=== PATIENT | female | born 1935 | race Caucasian/White ===

== ENCOUNTER 2020-06-28 10:14 | Inpatient (IN) | payer OTHER, BC ==
--- NOTE | 2020-06-28 10:27 | PDOC ---
History of Present Illness - History of Present Illness Initial Comments: 06/28/20 10:44 84 y.o. F PMHx HTN presenting due to L sided back pain. Patient states she had been bending over 2 days ago to lift up the toilet bowl seat when she felt a pain on the lower left side of her back. Patient states the pain progressed and is now feeling it down her left leg. Patient is able to ambulate unassisted and has had no headache, chest pain, sob, N/V/D or incontinence. PCP: Yael PMHx: HTN Meds: In Chart Allergies: Ibuprofen, penicillin, MRI contrast <Greg Cody - Last Filed: 06/28/20 15:49> - General History Source: Patient Exam Limitations: No Limitations <Aleah Barriga - Last Filed: 06/29/20 07:22> - General Chief Complaint: Back Pain Stated Complaint: BACK PAIN Past History - Medical History COPD: No HTN: Yes - Surgical History Appendectomy: Yes - Immunization History Immunization Up to Date: Yes - Psycho-Social/Smoking History Smoking History: Never smoked - Substance Abuse Hx (Audit-C & DAST Scrn) How often the patient has a drink containing alcohol: Never Score: In Men: 4 or > Positive; In Women: 3 or > Positive: 0 Screen Result (Pos requires Nsg. Audit-10AR): Negative In the last yr the pt used illegal drug/Rx for NonMed reason: No Score: Yes response is considered Positive: 0 Screen Result (Positive result requires Nsg. DAST-10): Negative <Greg Cody - Last Filed: 06/28/20 15:49> <Aleah Barriga - Last Filed: 06/29/20 07:22> - Medical History Allergies/Adverse Reactions: Allergies Allergy/AdvReac Type Severity Reaction Status Date / Time ibuprofen [From Advil] Allergy Verified 06/28/20 10:16 Penicillins Allergy Verified 06/28/20 10:16 MRI contrast Allergy Rash Uncoded 06/28/20 10:37 Home Medications: Ambulatory Orders Lisinopril [Zestril] 10 mg PO DAILY 11/01/14 Metoprolol Succinate [Toprol Xl] 50 mg PO BID 11/01/14 Review of Systems - Review of Systems Able to Perform ROS?: Yes Is the patient limited Ukrainian proficient: No Constitutional: No: Chills, Fever HEENTM: No: Blurred Vision, Double Vision Respiratory: No: Cough, Shortness of Breath Cardiac (ROS): No: Chest Pain, Edema ABD/GI: No: Constipated, Diarrhea, Nausea, Vomiting : No: Burning, Dysuria Musculoskeletal: No: Back Pain, Neck Pain Integumentary: No: Bruising, Erythema, Flushing Neurological: Yes: Weakness (L hip and back). No: Headache, Numbness, Tingling Hematologic/Lymphatic: No: Blood Clots, Easy Bleeding, Easy Bruising <Greg Cody - Last Filed: 06/28/20 15:49> *Physical Exam - Vital Signs Last Vital Signs Temp Pulse Resp BP Pulse Ox 92 H 18 124/82 100 06/28/20 10:16 06/28/20 10:16 06/28/20 10:16 06/28/20 10:16 - Physical Exam General Appearance: Yes: Nourished, Appropriately Dressed. No: Apparent Distress Respiratory/Chest: positive: Lungs Clear, Normal Breath Sounds. negative: Chest Tender, Crackles, Rales, Stridor, Wheezing Cardiovascular: positive: Regular Rhythm, Regular Rate. negative: Edema, JVD Gastrointestinal/Abdominal: positive: Normal Bowel Sounds, Flat, Soft. negative: Tender, Distended, Rebound, Tenderness Musculoskeletal: positive: Normal Inspection. negative: CVA Tenderness Extremity: positive: Normal Inspection. negative: Coldness, Cyanosis, Swelling, Calf Tenderness Integumentary: positive: Normal Color, Dry, Warm Neurologic: positive: Fully Oriented, Alert, Normal Mood/Affect, Normal Response, Motor Strength 5/5 <Greg Cody - Last Filed: 06/28/20 15:49> - Vital Signs Last Vital Signs Temp Pulse Resp BP Pulse Ox 92 H 18 124/82 100 06/28/20 10:16 06/28/20 10:16 06/28/20 10:16 06/28/20 10:16 <Aleah Barriga - Last Filed: 06/29/20 07:22> ED Treatment Course - LABORATORY CBC & Chemistry Diagram: 06/28/20 12:16 06/28/20 12:16 <Greg Cody - Last Filed: 06/28/20 15:49> - LABORATORY CBC & Chemistry Diagram: 06/28/20 12:16 06/28/20 12:16 - RADIOLOGY Radiology Studies Ordered: Category Date Time Status LUMBAR SPINE CT W/O CONTRAST [CT] Stat CT Scan 06/28/20 10:30 Taken - Medications Given in the ED: ED Medications Discontinued Medications Generic Name Dose Route Start Last Admin Trade Name Sharlene PRN Reason Stop Dose Admin Acetaminophen 975 mg 06/28/20 10:29 06/28/20 10:51 Tylenol - PO 06/28/20 10:30 975 mg ONCE ONE Administration Lidocaine 1 patch 06/28/20 10:37 06/28/20 10:51 Lidoderm Patch - TP 06/28/20 10:38 1 patch ONCE ONE Administration <Aleah Barriga - Last Filed: 06/29/20 07:22> Medical Decision Making - Medical Decision Making 06/28/20 10:50 84 y.o. F PMHx HTN presenting due to L sided back pain. DDx: Mechanical lumbar muscle strain, herniated disk, Impingement, cauda equina CT: Acute fracture of L4 with mild retropulsion of its posterior/superior margin resulting in moderate canal stenosis Labs: WBC 11.4, Trop 0.6 UA: 1+ protein, 1+ glucose, 2+ blood EKG: SR, RBB, QTc 458ms, rate 79 Dispo: Admission tele 06/28/20 15:40 <Greg Cody - Last Filed: 06/28/20 15:49> Discharge - Admission Yes <Greg Cody - Last Filed: 06/28/20 15:49> - Discharge Information Problems reviewed: Yes <Aleah Barriga - Last Filed: 06/29/20 07:22> - Discharge Information Clinical Impression/Diagnosis: Right bundle branch block, Unable to ambulate Fall Qualifiers: Encounter type: initial encounter Qualified Code(s): W19.XXXA - Unspecified fall, initial encounter Vertebral fracture Qualifiers: Encounter type: initial encounter Fracture of vertebra location: lumbar Lumbar vertebra fracture level: L4 Fracture type: closed Fracture morphology: unspecified fracture morphology Qualified Code(s): S32.049A - Unspecified fracture of fourth lumbar vertebra, initial encounter for closed fracture Condition: Guarded
[2020-06-28] MEDS ORDERED: ACETAMINOPHEN 325 MG TABLET (FP) PO ONE (10:29)
[2020-06-28] MEDS ORDERED: LIDOCAINE 5% TOPICAL PATCH TP ONE (10:37)
--- OUTSIDE RECORDS SUMMARY | 2020-06-28 10:37 | XMS ---
:1935 Author Organization [facility] Support Name Relationship Address Phone RE Unavailable Unavailable Unavailable JIMMY SON [address] [phone] [place] [address] Re-disclosure Warning The records that you are about to access may contain information from federally- assisted alcohol or drug abuse programs. If such information is present, then the following federally mandated warning applies: This information has been disclosed to you from records protected by federal confidentiality rules (42 CFR part 2). The federal rules prohibit you from making any further disclosure of this information unless further disclosure is expressly permitted by the written consent of the person to whom it pertains or as otherwise permitted by 42 CFR part 2. A general authorization for the release of medical or other information is NOT sufficient for this purpose. The Federal rules restrict any use of the information to criminally investigate or prosecute any alcohol or drug abuse patient.The records that you are about to access may contain highly sensitive health information, the redisclosure of which is protected by Article 27-F of the [facility] Public Health law. If you continue you may haveaccess to information: Regarding HIV / AIDS; Provided by facilities licensed or operated by the [facility] Office of Mental Health; or Provided by the [facility] Office for People With Developmental Disabilities. If such information is present, then the following [facility] mandated warning applies: This information has been disclosed to you from confidential records which are protected by state law. State law prohibits you from making any further disclosure of this information without the specific written consent of the person to whom it pertains, or as otherwise permitted by law. Any unauthorized further disclosure in violation of state law may result in a fine or group home sentence or both. A general authorization for the release of medical or other information is NOT sufficient authorization for further disclosure. Insurance Providers Payer name Policy type Policy ID Covered Covered constitution party's Policy P rodney / Coverage constitution party ID relationship to [employer] type [employer] GISELLE MULLEN [id number] SP [id number] (SECONDARY) 8 MEDICARE [id number] SP [id number]
[2020-06-28] MEDS ORDERED: ACETAMINOPHEN 325 MG TABLET (FP) ONE (10:40)
[2020-06-28] MEDS ORDERED: LIDOCAINE 5% TOPICAL PATCH ONE (10:41)
--- NOTE | 2020-06-28 10:57 | PDOC ---
Documentation entered by Prudencio Sewell SCRIBE, acting as scribe for Carly Dunn MD. Carly Dunn MD: This documentation has been prepared by the Donato chang Xhesika, SCRIBE, under my direction and personally reviewed by me in its entirety. I confirm that the documentation accurately reflects all work, treatment, procedures, and medical decision making performed by me. Attending Attestation - Resident Resident Name: Greg Cody - ED Attending Attestation I have performed the following: I have examined & evaluated the patient, The case was reviewed & discussed with the resident, I agree w/resident's findings & plan, Exceptions are as noted - HPI HPI: 06/28/20 10:40 [id number] with HTN and osteoporosis (previously on medication for this but not recently) who p/w left low back pain for the past 2 days, which worsened yesterday and began radiating down her left leg. The patient states she was trying to lift a part of the toilet 2 days ago when she felt a strain and had subsequent pain. Took Tylenol with partial relief. She denies ever having these symptoms before. Her daughter notes that the patient has been having difficulty walking since the pain worsened yesterday The patient denies chest pain, shortness of breath, headache and dizziness. Denies fever, chills, cough, nausea, vomiting, diarrhea and constipation. Denies dysuria, frequency, urgency and hematuria. Allergies: Ibuprofen, PCN, MRI contrast PCP: Adarsh Menezes - Physicial Exam PE: 06/28/20 10:44 GENERAL: elderly, nontoxic-appearing, no distress, answers questions appropriate ly, accompanied by daughter at bedside who assists in history HEENT: PERRLA, EOMI, moist mucous membranes NECK/BACK: no midline ttp, no spinal stepoff or deformity, no hematoma, full ROM, neck supple CARDIOVASCULAR: regular rate/rhythm, no MGR, strong peripheral pulses, capillary refill <2 seconds, extremities wwp, no edema LUNGS/RESPIRATORY: no respiratory distress, CTAB GI/ABDOMEN: symmetric elvh-cp-eaox, normoactive BS, soft, no ttp, no midline pulsatile masses : no CVA tenderness MSK/EXTREMITIES: no acute-appearing muscle atrophy, no acute deformity DERM/SKIN: warm and dry, no pallor, no jaundice, no rash, no pathologic- appearing bruising, no skin breakdown, no cuts, no lesions NEUROLOGICAL: GCS 15, CN II-XII grossly intact, 5/5 strength proximally and distally, no facial droop - Medical Decision Making 06/28/20 10:45 84YOF p/w left low back pain radiating down her left leg. No known h/o aortic aneurysm or dissection, no h/o osteoporosis or prolonged glucocorticoid or anticoagulant use, no h/o IVDU or immune compromise, no recent bacterial infections. No h/o cancer and no significant risk factors for cancer. The patient reports no recent trauma, weight loss, night sweats, swollen lymph nodes, fever, pain worsening with rest or at night, neuro focal deficit (no numbness/tingling/weakness focally), bowel or bladder dysfunction, or associated syncope, nausea, or diaphoresis. The pain is not severe or progressive, has been present for <6 weeks, and is not associated with thoracic or abdominal pain. Initial Vital Signs Pulse Resp BP Pulse Ox 92 H 18 124/82 100 06/28/20 10:16 06/28/20 10:16 06/28/20 10:16 06/28/20 10:16 Most likely muscle strain/sprain, sciatic nerve irritation, piriformis syndrome, etc. Less likely but possible DDD, DJD, osteophyte, compression fxr, other vertebral or spinous process fxr; malignancy, spinal epidural abscess, epidural hematoma, meningitis, multiple myeloma, or other more concerning etiology. Provider Orders Category Date Time Status LUMBAR SPINE CT W/O CONTRAST [CT] Stat CT Scan 06/28/20 10:30 Completed ELECTROCARDIOGRAM [CARD] Stat Cardiology 06/28/20 11:36 Completed EKG needed NOW Care 06/28/20 11:37 Completed Straight Catheter, Insert ONCE Care 06/28/20 11:36 Completed CARDIAC PROFILE ([facility]) Stat Lab 06/28/20 12:16 Completed CBC WITH DIFFERENTIAL Stat Lab 06/28/20 12:16 Completed COMP METABOLIC PANEL Stat Lab 06/28/20 12:16 Completed MAGNESIUM Stat Lab 06/28/20 12:16 Completed UA ([facility]) ONLY Stat Lab 06/28/20 13:00 Completed Acetaminophen [Tylenol -] Medication 06/28/20 10:40 Discontinued 975 mg .ROUTE .STK-MED ONE Acetaminophen [Tylenol -] Medication 06/28/20 10:29 Discontinued 975 mg PO ONCE ONE Clindamycin [Cleocin -] Medication 06/28/20 13:52 Discontinued 450 mg PO ONCE ONE Lidocaine 5% Patch [Lidoderm Patch -] Medication 06/28/20 10:41 Discontinued 1 patch .ROUTE .STK-MED ONE Lidocaine 5% Patch [Lidoderm Patch -] Medication 06/28/20 10:37 Discontinued 1 patch TP ONCE ONE Lidocaine Patch Removal [Lidoderm Patch Removal] Medication 06/28/20 22:00 Discontinued 1 each MC DAILY@2200 Morphine Injection - Medication 06/28/20 14:21 Discontinued 2 mg IVPUSH ONCE ONE Morphine Sulfate Medication 06/28/20 14:21 Discontinued 2 mg .ROUTE .STK-MED ONE Sodium Chloride [Normal Saline -] 500 ml Medication 06/28/20 14:21 Discontinued IV ASDIR URINE CULTURE Stat Micro 06/28/20 13:00 Completed IV Insert NOW Phy Order 06/28/20 11:36 Completed Saline Lock, Insert ONCE Phy Order 06/28/20 11:45 Ordered Microbiology Tests 06/28/20 13:00 Urine Culture - Final Urine - Urine - Catheterized Escherichia Coli Lab Results WBC 11.4 K/mm3 (4.0-10.0) H 06/28/20 12:16 RBC 4.02 M/mm3 (3.60-5.2) 06/28/20 12:16 Hgb 13.2 GM/dL (10.7-15.3) 06/28/20 12:16 Hct 38.8 % (32.4-45.2) 06/28/20 12:16 MCV 96.4 fl (80-96) H 06/28/20 12:16 MCH 32.9 pg (25.7-33.7) 06/28/20 12:16 MCHC 34.1 g/dl (32.0-36.0) 06/28/20 12:16 RDW 13.5 % (11.6-15.6) 06/28/20 12:16 Plt Count 140 K/MM3 (134-434) D 06/28/20 12:16 MPV 9.3 fl (7.5-11.1) 06/28/20 12:16 Absolute Neuts (auto) 8.7 K/mm3 (1.5-8.0) H 06/28/20 12:16 Neutrophils % 76.5 % (42.8-82.8) 06/28/20 12:16 Lymphocytes % 13.0 % (8-40) D 06/28/20 12:16 Monocytes % 9.3 % (3.8-10.2) 06/28/20 12:16 Eosinophils % 0.2 % (0-4.5) 06/28/20 12:16 Basophils % 1.0 % (0-2.0) 06/28/20 12:16 Nucleated RBC % 0 % (0-0) 06/28/20 12:16 Sodium 137 mmol/L (136-145) 06/28/20 12:16 Potassium 4.5 mmol/L (3.5-5.1) 06/28/20 12:16 Chloride 105 mmol/L (98-107) 06/28/20 12:16 Carbon Dioxide 27 mmol/L (21-32) 06/28/20 12:16 Anion Gap 5 MMOL/L (8-16) L 06/28/20 12:16 BUN 27.8 mg/dL (7-18) H 06/28/20 12:16 Creatinine 0.9 mg/dL (0.55-1.3) 06/28/20 12:16 Est GFR (CKD-EPI)AfAm 67.10 06/28/20 12:16 Est GFR (CKD-EPI)NonAf 57.90 06/28/20 12:16 Random Glucose 104 mg/dL (74-106) 06/28/20 12:16 Calcium 8.8 mg/dL (8.5-10.1) 06/28/20 12:16 Magnesium 2.4 mg/dL (1.8-2.4) 06/28/20 12:16 Total Bilirubin 0.4 mg/dL (0.2-1) 06/28/20 12:16 AST 22 U/L (15-37) 06/28/20 12:16 ALT 19 U/L (13-61) 06/28/20 12:16 Alkaline Phosphatase 68 U/L (45-117) 06/28/20 12:16 Creatine Kinase 64 U/L (26-192) 06/28/20 12:16 Troponin I 0.06 ng/ml (0.00-0.05) H 06/28/20 12:16 Total Protein 6.8 g/dl (6.4-8.2) 06/28/20 12:16 Albumin 3.2 g/dl (3.4-5.0) L 06/28/20 12:16 Urine Color Yellow 06/28/20 13:00 Urine Appearance Cloudy 06/28/20 13:00 Urine pH 5.0 (5.0-8.0) 06/28/20 13:00 Ur Specific Dodson 1.024 (1.010-1.035) 06/28/20 13:00 Urine Protein 1+ (NEGATIVE) H 06/28/20 13:00 Urine Glucose (UA) 1+ (NEGATIVE) H 06/28/20 13:00 Urine Ketones Negative (NEGATIVE) 06/28/20 13:00 Urine Blood 2+ (NEGATIVE) H 06/28/20 13:00 Urine Nitrite Positive (NEGATIVE) H 06/28/20 13:00 Urine Bilirubin Negative (NEGATIVE) 06/28/20 13:00 Urine Urobilinogen 0.2 mg/dL (0.2-1.0) 06/28/20 13:00 Ur Leukocyte Esterase 3+ (NEGATIVE) H 06/28/20 13:00 Urine WBC (Auto) 2330 /uL (0-25.8) 06/28/20 13:00 Urine RBC (Auto) 49 /uL (0-23.9) 06/28/20 13:00 Urine Casts (Auto) 1 /uL (0-3.1) 06/28/20 13:00 U Epithel Cells (Auto) 4 /uL (0-25.1) 06/28/20 13:00 Urine Bacteria (Auto) >9,000 /uL (0-1359) 06/28/20 13:00 CT/LUMBAR SPINE CT W/O CONTRAST Low back pain. CT scan of the lumbar spine without intravenous contrast. Coronal and sagittal reconstruction images were obtained. Compared to prior CT scan of the abdomen and pelvis reformatted images dated 11/01/2014. There is moderate compression and anterior wedging of L4 vertebral body superior endplates with lucent lines consistent with an acute fracture. There is mild retropulsion of its posterior/superior margin resulting in moderate canal stenosis as well as reaching and probably impinging both L4 nerve roots, left more the right. No gross paravertebral hematoma is identified. The rest of the lumbar spine is well aligned without evidence of a compression fracture or subluxation. L5-S1 mild degenerative disc disease with mild mainly left paracentral disc bulge and moderate bilateral facet hypertrophy, right more than left. L4-L5 moderate bilateral facet hypertrophy and minimal disc bulge without gross nerve root impi ngement. Notes made of multiple gallstones la yering posteriorly. There are a few right renal parapelvic cysts measuring up to 1.7 cm. Cannot rule out mild right renal hydronephrosis. A few left renal parapelvic cysts are also present measuring up to 1.4 cm. Dense calcified plaques in the abdominal aorta down through its bifurcation. Multiple diverticula in included portion of the distal sigmoid colon as well as in the proximal ascending colon without evidence of acute diverticulitis IMPRESSION: There is moderate compression/anterior wedging of L4 superior endplate consistent with an acute fracture with mild retropulsion of its posterior/ superior margin resulting in moderate canal stenosis and likely impinging both L4 nerve roots, left more than right. Diverticulosis coli in included portion of the colon without evidence of acute diverticulitis. Multiple gallstones. Bilateral renal parapelvic cysts and questionable mild renal hydronephrosis. Cystic density along posterior margin of the right kidney measuring 3.8 cm likely representing an exophytic right renal cyst Spoke with Dr. Jarrett, consult placed, requests MRI but document management technician states machine is down today, called for repair already. Dr. Jarrett requests brace application and will admit with plan for MRI when it is back online. Admission per resident note. Heart Score/ECG Review #1 06/28/20 11:57 Sinus rhythm, rate79, one PAC, RBBB with expected secondary ST-T changes (RBBB was not present on most recent [facility] EKG from 2014), no ischemic ST-T changes. Discharge - Discharge Information Problems reviewed: Yes Clinical Impression/Diagnosis: Right bundle branch block, Unable to ambulate Fall Qualifiers: Encounter type: initial encounter Qualified Code(s): W19.XXXA - Unspecified fall, initial encounter Vertebral fracture Qualifiers: Encounter type: initial encounter Fracture of vertebra location: lumbar Lumbar vertebra fracture level: unspecified lumbar vertebra Fracture type: closed Fracture morphology: wedge compression Qualified Code(s): S32.000A - Wedge compression fracture of unspecified lumbar vertebra, initial encounter for closed fracture Condition: Guarded - Admission Yes - Follow up/Referral - Patient Discharge Instructions - Post Discharge Activity
[2020-06-28 12:36] LABS: EOS % 0.2 % (0-4.5); HEMATOCRIT 38.8 % (32.4-45.2); HEMOGLOBIN 13.2 GM/dL (10.7-15.3); MCH 32.9 pg (25.7-33.7); MCHC 34.1 g/dl (32.0-36.0); MEAN CELL VOLUME 96.4 fl (80-96); MEAN PLT VOLUME 9.3 fl (7.5-11.1); MONO % 9.3 % (3.8-10.2); NEUT % 76.5 % (42.8-82.8); PLATELET COUNT 140 K/MM3 (134-434); RBC 4.02 M/mm3 (3.60-5.2); RDW 13.5 % (11.6-15.6); WHITE BLOOD COUNT 11.4 K/mm3 (4.0-10.0)
[2020-06-28 13:05] LABS: ALBUMIN 3.2 g/dl (3.4-5.0); BILIRUBIN,TOTAL 0.4 mg/dL (0.2-1); BLOOD UREA NITROGEN 27.8 mg/dL (7-18); CALCIUM 8.8 mg/dL (8.5-10.1); CREATININE 0.9 mg/dL (0.55-1.3); MAGNESIUM 2.4 mg/dL (1.8-2.4); POTASSIUM 4.5 mmol/L (3.5-5.1); TOT PROT 6.8 g/dl (6.4-8.2)
[2020-06-28 13:37] LABS: EPI CELLS 4 /uL (0-25.1); HYALINE CASTS 1 /uL (0-3.1); URINE APPEARANCE CLOUDY; URINE BACTERIA >9,000 /uL (0-1359); URINE BILIRUBIN NEGATIVE (NEGATIVE); URINE COLOR YELLOW; URINE GLUCOSE (UA) 1+ (NEGATIVE); URINE KETONE NEGATIVE (NEGATIVE); URINE LEUK ESTERASE 3+ (NEGATIVE); URINE NITRITE POSITIVE (NEGATIVE); URINE PROTEIN 1+ (NEGATIVE); URINE RBC 49 /uL (0-23.9); URINE UROBILINOGEN 0.2 mg/dL (0.2-1.0); URINE WBC 2330 /uL (0-25.8)
[2020-06-28] MEDS ORDERED: CLINDAMYCIN HCL 150 MG CAPSULE (FP) PO ONE (13:52)
[2020-06-28] MEDS ORDERED: SODIUM CHLORIDE 500 ML IV STA (14:21)
[2020-06-28] MEDS ORDERED: MORPHINE SULFATE 2 MG/ML VIAL ONE (14:21)
[2020-06-28] MEDS ORDERED: morphine CARPU-JECT 4 MG/1 ML DISP.SYRIN IVPUSH ONE (14:21)
--- NOTE | 2020-06-28 15:02 | EKG ---
Test Reason : Blood Pressure : / mmHG Vent. Rate : 079 BPM Atrial Rate : 079 BPM P-R Int : 132 ms QRS Dur : 118 ms QT Int : 400 ms P-R-T Axes : 071 -28 017 degrees QTc Int : 458 ms SINUS RHYTHM WITH PREMATURE SUPRAVENTRICULAR COMPLEXES RIGHT BUNDLE BRANCH BLOCK ABNORMAL ECG WHEN COMPARED WITH ECG OF 01-NOV-2014 19:35, PREMATURE SUPRAVENTRICULAR COMPLEXES ARE NOW PRESENT RIGHT BUNDLE BRANCH BLOCK IS NOW PRESENT Confirmed by PEYTON BENTLEY MD ([id number]) on 06/28/2020 3:01:59 PM Referred By: Confirmed By:PEYTON BENTLEY MD
[2020-06-28] MEDS ORDERED: MORPHINE SULFATE 2 MG/ML VIAL IVPUSH PRN (16:01)
--- NOTE | 2020-06-28 16:07 | HP ---
CHIEF COMPLAINT: lumbar back pain PCP: Dr. Seymour HISTORY OF PRESENT ILLNESS: History obtained with assistance of daughter Wilbur Rankin ([phone]) at bedside. Patient is an 84 year old female with history of hypertension, osteoarthritis, oral cancer (s/p jaw surgery) presents with complaint of lumbar back pain. Patient endorses symptoms began three days ago after she attempted to lift up her toilet seat. She endorses a sharp pain at her left lower back that has progressed with radiation to her leg. Daughter at bedside endorses the pain has worsened such that patient was unable to get out of bed this morning, prompting her presentation to Emergency Department. At baseline, patient ambulates with a can, though sometimes she does not use it. Denies any trauma or falls, subjective fevers, shortness of breath, chest pain, palpitations, abdominal pain, nausea, vomiting, dysuria, hematuria, or increased urinary frequency ER course was notable for: (1) CT lumbar spine (2) (3) Recent Travel: denies PAST MEDICAL HISTORY: hypertension, osteoarthritis, oral cancer PAST SURGICAL HISTORY: jaw surgery, appendectomy, left breast biopsy Social History: Lives alone in apartment, however nephew lives in floor above. Ambulates with cane. Immigrated from [place]; retired electrical boat worker. Smoking: denies Alcohol: denies Drugs: denies Allergies ibuprofen [From Advil] Allergy (Verified 06/28/20 10:16) Penicillins Allergy (Verified 06/28/20 10:16) MRI contrast Allergy (Uncoded 06/28/20 10:37) Rash HOME MEDICATIONS: Home Medications Medication Instructions Recorded Lisinopril [Zestril] 10 mg PO DAILY 11/01/14 Metoprolol Succinate [Toprol Xl] 50 mg PO BID 11/01/14 REVIEW OF SYSTEMS CONSTITUTIONAL: Absent: fever, chills, diaphoresis, generalized weakness, malaise, loss of appetite, weight change HEENT: Absent: rhinorrhea, nasal congestion, throat pain, throat swelling, difficulty swallowing, mouth swelling, ear pain, eye pain, visual changes CARDIOVASCULAR: Absent: chest pain, syncope, palpitations, irregular heart rate, lightheadedness, peripheral edema RESPIRATORY: Absent: cough, shortness of breath, dyspnea with exertion, orthopnea, wheezing, stridor, hemoptysis GASTROINTESTINAL: Absent: abdominal pain, abdominal distension, nausea, vomiting, diarrhea, constipation, melena, hematochezia GENITOURINARY: Absent: dysuria, frequency, urgency, hesitancy, hematuria, flank pain, genital pain MUSCULOSKELETAL: Admits: back pain Absent: myalgia, arthralgia, joint swelling, neck pain SKIN: Absent: rash, itching, pallor HEMATOLOGIC/IMMUNOLOGIC: Absent: easy bleeding, easy bruising, lymphadenopathy, frequent infections ENDOCRINE: Absent: unexplained weight gain, unexplained weight loss, heat intolerance, cold intolerance NEUROLOGIC: Absent: headache, focal weakness or paresthesias, dizziness, unsteady gait, seizure, mental status changes, bladder or bowel incontinence PSYCHIATRIC: Absent: anxiety, depression, suicidal or homicidal ideation, hallucinations. PHYSICAL EXAMINATION Vital Signs - 24 hr 06/28/20 06/28/20 10:16 13:35 Temperature 97.8 F Pulse Rate 92 H Pulse Rate [ 81 Left] Respiratory 18 Rate Blood Pressure 124/82 Blood Pressure 143/83 [Left] O2 Sat by Pulse 100 95 Oximetry (%) GENERAL: Awake, alert, and fully oriented, in no acute distress. HEAD: Normal with no signs of trauma. EYES: Pupils equal, round and reactive to light, extraocular movements intact, sclera anicteric, conjunctiva clear. No lid lag. EARS, NOSE, THROAT: Ears normal, nares patent, oropharynx clear without exudates. Moist mucous membranes. NECK: Normal range of motion, supple without lymphadenopathy, JVD, or masses. LUNGS: Breath sounds equal, clear to auscultation bilaterally. No wheezes, and no crackles. No accessory muscle use. HEART: Regular rate and rhythm, normal S1 and S2 without murmur, rub or gallop. ABDOMEN: Soft, nontender, not distended, normoactive bowel sounds, no guarding, no rebound, no masses. No hepatomegaly or splenomegaly. MUSCULOSKELETAL: Normal range of motion at all joints. No bony deformities or tenderness. No CVA tenderness. UPPER EXTREMITIES: 2+ pulses, warm, well-perfused. No cyanosis. No clubbing. No peripheral edema. LOWER EXTREMITIES: 2+ pulses, warm, well-perfused. No calf tenderness. No peripheral edema. NEUROLOGICAL: Cranial nerves II-XII intact. Normal speech. Normal gait. PSYCHIATRIC: Cooperative. Good eye contact. Appropriate mood and affect. SKIN: Warm, dry, normal turgor, no rashes or lesions noted, normal capillary refill Laboratory Results - last 24 hr 06/28/20 06/28/20 06/28/20 12:16 12:16 13:00 WBC 11.4 H RBC 4.02 Hgb 13.2 Hct 38.8 MCV 96.4 H MCH 32.9 MCHC 34.1 RDW 13.5 Plt Count 140 D MPV 9.3 Absolute Neuts (auto) 8.7 H Neutrophils % 76.5 Lymphocytes % 13.0 D Monocytes % 9.3 Eosinophils % 0.2 Basophils % 1.0 Nucleated RBC % 0 Sodium 137 Potassium 4.5 Chloride 105 Carbon Dioxide 27 Anion Gap 5 L BUN 27.8 H Creatinine 0.9 Est GFR (CKD-EPI)AfAm 67.10 Est GFR (CKD-EPI)NonAf 57.90 Random Glucose 104 Calcium 8.8 Magnesium 2.4 Total Bilirubin 0.4 AST 22 ALT 19 Alkaline Phosphatase 68 Creatine Kinase 64 Troponin I 0.06 H Total Protein 6.8 Albumin 3.2 L Urine Color Yellow Urine Appearance Cloudy Urine pH 5.0 Ur Specific [place] 1.024 Urine Protein 1+ H Urine Glucose (UA) 1+ H Urine Ketones Negative Urine Blood 2+ H Urine Nitrite Positive H Urine Bilirubin Negative Urine Urobilinogen 0.2 Ur Leukocyte Esterase 3+ H Urine WBC (Auto) 2330 Urine RBC (Auto) 49 Urine Casts (Auto) 1 U Epithel Cells (Auto) 4 Urine Bacteria (Auto) >9,000 ASSESSMENT/PLAN: Patient is an 84 year old female with history of hypertension, osteoarthritis, oral cancer (s/p jaw surgery) presents with complaint of lumbar back pain. Lumbar L4 fracture -CT lumbar spine reveals moderate compression/ anterior edging of L4. Moderate canal stenosis, L4 nerve impingement. -Neurosurgery consult (Dr. Jarrett) -Will obtain MRI lumbar spine without contrast (contrast allergy noted) -Will require physical therapy evaluation, after neursurgical evaluation -Pain management with Acetaminophen, Morphine for breakthrough pain -Fall precautions ?New RBBB -Prior ECG in 2014 did not reveal RBBB -In setting of troponin 0.06. Will trend -Cardiac telemetry monitoring -Cardiology evaluation (Dr. Paul) requested Urinary tract infection -UA significant for UTI -Follow urine culture -Clindamycin IV (penicillin allergy) -Follow CBC -CT scan noted questionable mild right sided hydronephrosis. Will obtain renal ultrasound to further evaluate. History of hypertension -Continue home Lisinopril, Metoprolol FEN -No IV fluids indicated -Follow BMP -Sodium controlled diet Prophylaxis -Holding chemical anticoagulation in anticipation of neursurgical evaluation. SCDs bilateral lower extremities. Disposition -Admit to Telemetry floor. Family Medical History Family History: Unremarkable Visit type - Medication Review Med list reviewed for High Risk Meds patients 65 and older: Yes - Emergency Visit Emergency Visit: Yes ED Registration Date: 06/28/20 Care time: The patient presented to the Emergency Department on the above date and was hospitalized for further evaluation of their emergent condition. - New Patient This patient is new to me today: Yes Date on this admission: 06/28/20 - Critical Care Critical Care patient: No ATTENDING PHYSICIAN STATEMENT I saw and evaluated the patient. I reviewed the resident's note and discussed the case with the resident. I agree with the resident's findings and plan as documented. SUBJECTIVE: OBJECTIVE: ASSESSMENT AND PLAN:
[2020-06-28] MEDS ORDERED: CIPROFLOXACIN 400 MG/D5W 400 MG/200 ML IVPB IVPB ONE (16:19)
--- OUTSIDE RECORDS SUMMARY | 2020-06-28 16:31 | XMS ---
:1935 Author Organization [facility] Support Name Relationship Address Phone RE Unavailable Unavailable Unavailable RE Unavailable Unavailable Unavailable JIMMY SON [address] [address] Re-disclosure Warning The records that you are [...] is protected by Article 27-F of the [facility] Public Health law. If you continue you may haveaccess to information: Regarding HIV / AIDS; Provided by facilities licensed or operated by the [facility] Office of Mental Health; or Provided by the [facility] Office for People With Developmental Disabilities. If such information is present, then the following [facility] mandated warning applies: This information has been [...] law may result in a fine or fpc sentence or both. A general authorization for the release of medical or other information is NOT sufficient authorization for further disclosure. Insurance Providers Payer name Policy type Policy ID Covered Covered alliance party's Policy P rodney / Coverage alliance party ID relationship to [employer] type [place] [employer] [id number] SP [id number] (SECONDARY) 8 MEDICARE [id number] SP [id number]
[2020-06-28 18:32] VITALS: BMI 27.3
[2020-06-28] MEDS: CLINDAMYCIN 600MG PREMIX IVPB 600 MG/50 ML BAG IVPB SCH (20:45)
[2020-06-28] MEDS: ACETAMINOPHEN 325 MG TABLET (FP) PO PRN (21:06)
[2020-06-28] MEDS: LIDOCAINE PATCH REMOVAL MC SCH (21:58)
--- NOTE | 2020-06-28 22:47 | PN ---
Teaching Attending Note Name of Resident: Barry Silverman ATTENDING PHYSICIAN STATEMENT I saw and evaluated the patient. I reviewed the resident's note and discussed the case with the resident. I agree with the resident's findings and plan as documented. SUBJECTIVE: Patient seen and examined at bedside, admitted for L4 fx w/ canal stenosis, also found to have UTI. VSS. OBJECTIVE: GA elderly, frail, AAox2 HEENT NC/AT, mild JVD, neck supple, dry MM Chest crackles at bases CVS s1, s2+, RRR Abd Soft, NT, BS+, ND Ext no LE edema, no calf tenderness, L spine tenderness to palpation mild suprapubic discomfort to palpation, no CVA tenderness Vital Signs (72 hours) 06/28/20 06/28/20 06/28/20 10:16 13:35 17:40 Temperature 97.8 F Pulse Rate 92 H Pulse Rate [ 81 88 Left] Respiratory 18 20 Rate Blood Pressure 124/82 Blood Pressure 143/83 134/70 [Left] O2 Sat by Pulse 100 95 97 Oximetry (%) 06/28/20 06/28/20 18:22 21:00 Temperature 97.9 F 97.7 F Pulse Rate 94 H 98 H Pulse Rate [ Left] Respiratory 20 20 Rate Blood Pressure 140/86 145/76 Blood Pressure [Left] O2 Sat by Pulse 94 L 97 Oximetry (%) Laboratory Results - last 24 hr 06/28/20 06/28/20 06/28/20 12:16 12:16 13:00 WBC 11.4 H RBC 4.02 Hgb 13.2 Hct 38.8 MCV 96.4 H MCH 32.9 MCHC 34.1 RDW 13.5 Plt Count 140 D MPV 9.3 Absolute Neuts (auto) 8.7 H Neutrophils % 76.5 Lymphocytes % 13.0 D Monocytes % 9.3 Eosinophils % 0.2 Basophils % 1.0 Nucleated RBC % 0 Sodium 137 Potassium 4.5 Chloride 105 Carbon Dioxide 27 Anion Gap 5 L BUN 27.8 H Creatinine 0.9 Est GFR (CKD-EPI)AfAm 67.10 Est GFR (CKD-EPI)NonAf 57.90 Random Glucose 104 Calcium 8.8 Magnesium 2.4 Total Bilirubin 0.4 AST 22 ALT 19 Alkaline Phosphatase 68 Creatine Kinase 64 Troponin I 0.06 H Total Protein 6.8 Albumin 3.2 L Urine Color Yellow Urine Appearance Cloudy Urine pH 5.0 Ur Specific [place] 1.024 Urine Protein 1+ H Urine Glucose (UA) 1+ H Urine Ketones Negative Urine Blood 2+ H Urine Nitrite Positive H Urine Bilirubin Negative Urine Urobilinogen 0.2 Ur Leukocyte Esterase 3+ H Urine WBC (Auto) 2330 Urine RBC (Auto) 49 Urine Casts (Auto) 1 U Epithel Cells (Auto) 4 Urine Bacteria (Auto) >9,000 06/28/20 06/28/20 16:18 21:25 WBC RBC Hgb Hct MCV MCH MCHC RDW Plt Count MPV Absolute Neuts (auto) Neutrophils % Lymphocytes % Monocytes % Eosinophils % Basophils % Nucleated RBC % Sodium Potassium Chloride Carbon Dioxide Anion Gap BUN Creatinine Est GFR (CKD-EPI)AfAm Est GFR (CKD-EPI)NonAf Random Glucose Calcium Magnesium Total Bilirubin AST ALT Alkaline Phosphatase Creatine Kinase 57 54 Troponin I 0.08 H 0.05 Total Protein Albumin Urine Color Urine Appearance Urine pH Ur Specific [place] Urine Protein Urine Glucose (UA) Urine Ketones Urine Blood Urine Nitrite Urine Bilirubin Urine Urobilinogen Ur Leukocyte Esterase Urine WBC (Auto) Urine RBC (Auto) Urine Casts (Auto) U Epithel Cells (Auto) Urine Bacteria (Auto) Home Medications Medication Instructions Recorded Lisinopril [Zestril] 10 mg PO DAILY 11/01/14 Metoprolol Succinate [Toprol Xl] 50 mg PO BID 11/01/14 Current Medications Generic Name Dose Route Start Last Admin Trade Name Freq PRN Reason Stop Dose Admin Acetaminophen 650 mg 06/28/20 16:01 06/28/20 21:06 Tylenol - PO 650 mg Q6H PRN Administration PAIN LEVEL 1-5 Clindamycin Phosphate 600 mg in 50 mls @ 100 mls/hr 06/28/20 20:00 06/28/20 20:45 Cleocin 600 Mg Premix Ivpb - IVPB 100 mls/hr Q8H-IV TOMAS Administration Protocol Lisinopril 10 mg 06/29/20 10:00 Prinivil PO DAILY TOMAS Metoprolol Succinate 50 mg 06/28/20 22:00 06/28/20 21:07 Toprol Xl - PO 50 mg BID TOMAS Administration Miscellaneous 1 each 06/28/20 22:00 06/28/20 21:58 Lidoderm Patch Removal MC 1 each DAILY@2200 TOMAS Administration Morphine Sulfate 1 mg 06/28/20 16:01 Morphine Sulfate IVPUSH Q4H PRN PAIN LEVEL 6-10 ASSESSMENT AND PLAN: 84 F L spine fx w/ moderate canal stenosis ALJEANDRA UTI HTN Mild dementia Plan: IV Tylenol for pain control, Morphine for severe pain Renal/Bladder US for ALEJANDRA/hematuria Clindamycin for UTI Aggressive bowel regimen NSG following Cardiology evaluation (Dr. Mccall) for troponemia/RBBB on EKG Tele monitoring DVT ppx: heparin SC
[2020-06-29] MEDS: CLINDAMYCIN 600MG PREMIX IVPB 600 MG/50 ML BAG IVPB SCH ×3 (03:18→17:14)
[2020-06-29] MEDS: ACETAMINOPHEN 325 MG TABLET (FP) PO PRN ×3 (03:37→21:10)
[2020-06-29 07:12] LABS: HEMATOCRIT 36.2 % (32.4-45.2); HEMOGLOBIN 12.4 GM/dL (10.7-15.3); MCH 32.9 pg (25.7-33.7); MCHC 34.2 g/dl (32.0-36.0); MEAN CELL VOLUME 96.3 fl (80-96); MEAN PLT VOLUME 10.1 fl (7.5-11.1); PLATELET COUNT 133 K/MM3 (134-434); RBC 3.76 M/mm3 (3.60-5.2); RDW 13.7 % (11.6-15.6); WHITE BLOOD COUNT 9.5 K/mm3 (4.0-10.0)
[2020-06-29 07:45] LABS: ALBUMIN 2.9 g/dl (3.4-5.0); BILIRUBIN,TOTAL 0.7 mg/dL (0.2-1); BLOOD UREA NITROGEN 26.4 mg/dL (7-18); CALCIUM 8.1 mg/dL (8.5-10.1); CREATININE 0.8 mg/dL (0.55-1.3); MAGNESIUM 2.1 mg/dL (1.8-2.4); PHOSPHOROUS 3.2 mg/dL (2.5-4.9); POTASSIUM 4.4 mmol/L (3.5-5.1); TOT PROT 6.2 g/dl (6.4-8.2)
--- NOTE | 2020-06-29 08:43 | PN ---
Teaching Attending Note Name of Resident: Kamran Ruggiero ATTENDING PHYSICIAN STATEMENT I saw and evaluated the patient. I reviewed the resident's note and discussed the case with the resident. I agree with the resident's findings and plan as documented. SUBJECTIVE: Patient still with back pain OBJECTIVE: Vital Signs Period Temp Pulse Resp BP Sys/Penny Pulse Ox Last 24 Hr 97.7 F-98.4 F 90-98 18-20 115-145/55-89 90-97 Physical exam as per resident note ASSESSMENT AND PLAN: 84 y/o F with Hx of HTN, OA, Oral CA who presents with lumbar back pain Lumbar Pain in setting of L4 compression fracture NeuroSx evaluation for intervention: Surgical vs. conservative Continue Pain control HTN Cont Lisinopril, Metoprolol UTI Cont Clindamycin PPx SCD,
[2020-06-29] MEDS: LISINOPRIL 10 MG TABLET PO SCH (09:38)
--- NOTE | 2020-06-29 10:06 | EKG ---
Test Reason : Blood Pressure : / mmHG Vent. Rate : 092 BPM Atrial Rate : 092 BPM P-R Int : 130 ms QRS Dur : 116 ms QT Int : 390 ms P-R-T Axes : 000 -28 -06 degrees QTc Int : 482 ms SINUS RHYTHM WITH PREMATURE SUPRAVENTRICULAR COMPLEXES RIGHT BUNDLE BRANCH BLOCK ABNORMAL ECG WHEN COMPARED WITH ECG OF 28-JUN-2020 11:57, NO SIGNIFICANT CHANGE WAS FOUND Confirmed by MD Carlos, Cleve ([id number]) on 06/29/2020 10:06:31 AM Referred By: Confirmed By:Cleve Gonzalez MD
--- NOTE | 2020-06-29 12:30 | CONSULT ---
Consult - text type - Consultation Consultation Note: NEUROSURGERY CONSULTATION Patient is an 84 year old female with a history of HTN, osteoarthritis, oral cancer who developed low back pain after an incident 4 days ago when she was lifting a toilet seat and noted sudden sharp pain in her Lumbar spine. This has progressed to include Left leg radicular pain and the patient presented to the [facility] ED with inability to get out of bed whereas she normally ambulates with a cane. CT and MRI demonstrate an acute L4 burst fracture with mild retropulsion and bilateral foraminal encroachment. TLICS Score is 2 (2 Morphology; 0 Neurology; 0 Posterior element compromise) suggesting initial management in a brace would be appropriate. - TLSO brace when out of bed and for comfort - Physical Therapy - GI/DVT Prophylaxis - Will re-evaluate after ambulating with brace. If patient cannot bear weight or has intractable radicular symptoms or progressive angulation, will discuss the potential role for further intervention.
--- NOTE | 2020-06-29 12:58 | CON.CARD ---
Consult Consult Specialty:: Cardiology Referred by:: medicine Reason for Consultation:: abnormal EKG - History of Present Illness Chief Complaint: back pain History of Present Illness: 84F h/o HTN, OA, oral cancer s/p jaw surgery p/w back pain. Started 3 days ago, sharp pain after lifting the toilet seat and her leg hurts now as well. Complains of leg pain currently. no chest pain, palps, dizziness,dyspnea. noted to have abnormal EKG with new RBBB and mildly elevated trop. - Past Medical History Cardio/Vascular: Yes: HTN Pulmonary: Yes: Cancer - Alcohol/Substance Use Hx Alcohol Use: No History of Substance Use: reports: None - Smoking History Smoking history: Never smoked Home Medications - Allergies Allergies/Adverse Reactions: Allergies Allergy/AdvReac Type Severity Reaction Status Date / Time ibuprofen [From Advil] Allergy Verified 06/28/20 10:16 Penicillins Allergy Verified 06/28/20 10:16 MRI contrast Allergy Rash Uncoded 06/28/20 10:37 - Home Medications Home Medications: Ambulatory Orders Lisinopril [Zestril] 10 mg PO DAILY 11/01/14 Metoprolol Succinate [Toprol Xl] 50 mg PO BID 11/01/14 Family Medical History Family History: Unremarkable Review of Systems - Review of Systems Constitutional: reports: No Symptoms Eyes: reports: No Symptoms HENT: reports: No Symptoms Neck: reports: No Symptoms Cardiovascular: reports: No Symptoms Respiratory: reports: No Symptoms Gastrointestinal: reports: No Symptoms Genitourinary: reports: No Symptoms Musculoskeletal: reports: No Symptoms Integumentary: reports: No Symptoms Neurological: reports: No Symptoms Endocrine: reports: No Symptoms Hematology/Lymphatic: reports: No Symptoms Psychiatric: reports: No Symptoms Vital Signs: Vital Signs Temperature 98.4 F 06/29/20 09:55 Pulse Rate 90 06/29/20 09:55 Respiratory Rate 20 06/29/20 09:55 Blood Pressure 143/89 06/29/20 09:55 O2 Sat by Pulse Oximetry (%) 95 06/29/20 09:55 Constitutional: Yes: Well Nourished, No Distress, Calm Eyes: Yes: Conjunctiva Clear, EOM Intact HENT: Yes: Atraumatic, Normocephalic Neck: Yes: Supple, Trachea Midline Respiratory: Yes: Regular, CTA Bilaterally Gastrointestinal: Yes: Normal Bowel Sounds, Soft Cardiovascular: Yes: Regular Rate and Rhythm JVD: No Heart Sounds: Yes: S1, S2 Musculoskeletal: Yes: Back Pain Extremities: No: Cold Edema: No Integumentary: No: Jaundice Neurological: Yes: Alert, Oriented Psychiatric: No: Agitated - Other Data Labs, Other Data: CBC, BMP 06/29/20 05:45 06/29/20 05:45 Troponin, BNP 06/28/20 06/28/20 06/28/20 12:16 16:18 21:25 Troponin I 0.06 H 0.08 H 0.05 Troponin, BNP 06/28/20 06/28/20 06/28/20 12:16 16:18 21:25 Troponin I 0.06 H 0.08 H 0.05 Assessment/Plan EKG: sinus, RBBB, no ischemic changes (RBBB new since prior EKG from 2014) tele: sinus 84F h/o HTN, OA, oral cancer s/p jaw surgery p/w back pain with new RBBB on EKG abnormal EKG, RBBB - check echo elevated trop - indeterminate range, flat trend - no ischemic change on EKG, unlikely ACS - echo as above back pain, lumbar L4 fracture - neurosurgery consulted UTI - manage per primary HTN - cont home meds
--- NOTE | 2020-06-29 14:48 | ECHO ---
Version: 1 Name: FRANCHESCA MARQUEZ Exam: Adult Echocardiogram Study Date: 06/29/2020, 10:52 AM Age: 84 Years MMode/2D Measurements & Calculations IVSd: 0.89 cm LVIDs: 2.6 cm LVIDd: 3.1 cm LVPWd: 0.91 cm LAV (MOD-bp): 56.0 ml LVOT diam: 1.95 cm Ao root diam: 3.2 cm LA dimension: 2.7 cm Doppler Measurements & Calculations MV E max dae: 57.5 cm/sec Med E/e': 17.0 MV A max dae: 87.5 cm/sec Med Peak E' Dae: 3.4 cm/sec MV E/A: 0.66 Lat E/e': 6.5 Lat Peak E' Dae: 8.8 cm/sec MR max P.4 mmHg Ao max P.8 mmHg Ao V2 max: 130.3 cm/sec AI P1/2t: 368.6 msec TR max dae: 341.2 cm/sec TR max P.8 mmHg Left Ventricle The left ventricular size, thickness and function are normal. EF 55%. Abnormal diastolic complaince. Right Ventricle The right ventricle is normal in size and function. Atria Moderate LAE. Right atrial size is normal. Mitral Valve The mitral valve is normal in structure and function. Tricuspid Valve The tricuspid valve is normal in structure and function. Mild TR, PASP 52 mmHg consistent with moder ate pulmonary HTN. Aortic Valve Fibrocalcific changes of the aortic valve without aortic stenosis. Mild AI. Pulmonic Valve The pulmonic valve is normal in structure and function. Great Vessels The aortic root is normal size. Pericardium/Pleura There is no pericardial effusion. Summary Statements The left ventricular size, thickness and function are normal EF 55% Abnormal diastolic complaince The right ventricle is normal in size and function. Moderate LAE Right atrial size is normal. The mitral valve is normal in structure and function. The tricuspid valve is normal in structure and function. Mild TR, PASP 52 mmHg consistent with moderate pulmonary HTN Fibrocalcific changes of the aortic valve without aortic stenosis. Mild AI MD Cleve Gonzalez 06/29/2020, 2:47 PM Ordering Physician: Liss Abel Performed By: Barbara Churchill
--- NOTE | 2020-06-29 16:08 | PN ---
Physical Exam: SUBJECTIVE: Patient seen and examined at bedside, reports a sudden onset of back pain after lifting her toilet seat. Started Sunday and worsened last night. Denies numbness of inner thigh, buttock, Urinary/bowel incontinence. OBJECTIVE: Vital Signs Period Temp Pulse Resp BP Sys/Penny Pulse Ox Last 24 Hr 97.7 F-98.4 F 88-98 18-20 115-145/55-89 90-97 GENERAL: The patient is awake, alert, and fully oriented, in no acute distress. HEAD: Normal with no signs of trauma. EYES: PERRL, extraocular movements intact, sclera anicteric, conjunctiva clear. No ptosis. ENT: Ears normal, nares patent, oropharynx clear without exudates, moist mucous membranes. NECK: Trachea midline, full range of motion, supple. LUNGS: Breath sounds equal, clear to auscultation bilaterally, no wheezes, no crackles, no accessory muscle use. HEART: Regular rate and rhythm, S1, S2 without murmur, rub or gallop. ABDOMEN: Soft, nontender, nondistended, normoactive bowel sounds, no guarding, no rebound, no hepatosplenomegaly, no masses. EXTREMITIES: 2+ pulses, warm, well-perfused, no edema. NEUROLOGICAL: Cranial nerves II through XII grossly intact. Normal speech, gait not observed. PSYCH: Normal mood, normal affect. SKIN: Warm, dry, normal turgor, no rashes or lesions noted Laboratory Results - last 24 hr 06/28/20 06/28/20 06/28/20 16:00 16:18 21:25 WBC RBC Hgb Hct MCV MCH MCHC RDW Plt Count MPV Sodium Potassium Chloride Carbon Dioxide Anion Gap BUN Creatinine Est GFR (CKD-EPI)AfAm Est GFR (CKD-EPI)NonAf Random Glucose Calcium Phosphorus Magnesium Total Bilirubin AST ALT Alkaline Phosphatase Creatine Kinase 57 54 Troponin I 0.08 H 0.05 Total Protein Albumin COVID-19 (JAMIE) Not detected 06/29/20 06/29/20 05:45 05:45 WBC 9.5 RBC 3.76 Hgb 12.4 Hct 36.2 MCV 96.3 H MCH 32.9 MCHC 34.2 RDW 13.7 Plt Count 133 L MPV 10.1 Sodium 137 Potassium 4.4 Chloride 105 Carbon Dioxide 25 Anion Gap 7 L BUN 26.4 H Creatinine 0.8 Est GFR (CKD-EPI)AfAm 77.37 Est GFR (CKD-EPI)NonAf 66.76 Random Glucose 87 Calcium 8.1 L Phosphorus 3.2 Magnesium 2.1 Total Bilirubin 0.7 AST 31 ALT 21 Alkaline Phosphatase 63 Creatine Kinase Troponin I Total Protein 6.2 L Albumin 2.9 L COVID-19 (JAMIE) Active Medications Generic Name Dose Route Start Last Admin Trade Name Freq PRN Reason Stop Dose Admin Acetaminophen 650 mg 06/28/20 16:01 06/29/20 14:46 Tylenol - PO 650 mg Q6H PRN Administration PAIN LEVEL 1-5 Clindamycin Phosphate 600 mg in 50 mls @ 100 mls/hr 06/28/20 20:00 06/29/20 09:37 Cleocin 600 Mg Premix Ivpb - IVPB 100 mls/hr Q8H-IV TOMAS Administration Protocol Lisinopril 10 mg 06/29/20 10:00 06/29/20 09:38 Prinivil PO 10 mg DAILY TOMAS Administration Metoprolol Tartrate 50 mg 06/29/20 22:00 Lopressor - PO BID TOMAS Miscellaneous 1 each 06/28/20 22:00 06/28/20 21:58 Lidoderm Patch Removal MC 1 each DAILY@2200 TOMAS Administration Morphine Sulfate 1 mg 06/28/20 16:01 Morphine Sulfate IVPUSH Q4H PRN PAIN LEVEL 6-10 Imaging: Lumbar spine MRI: Acute compression fracture of L4 vertebral body with retropulsion of the posterior aspect of the of the vertebrae severely compromising the sac displacing it posteriorly with mass effect on the right and left L5 nerve roots in the recesses at best delineated on axial T1 image #11 and 12. No evidence otherwise of midline or foraminal herniation. The visualized foramina are symmetric and unremarkable. Cholelithiasis with no evidence of intrahepatic biliary ducts, common hepatic or common bile duct dilatation. Lumbar spine CT: There is moderate compression/anterior wedging of L4 superior endplate consistent with an acute fracture with mild retropulsion of its posterior/superior margin resulting in moderate canal stenosis and likely impinging both L4 nerve roots, left more than right. Diverticulosis coli in included portion of the colon without evidence of acute diverticulitis. Multiple gallstones. Bilateral renal parapelvic cysts and questionable mild renal hydro nephrosis. Cystic density along posterior margin of the right kidney measuring 3.8 cm likely representing an exophytic right renal cyst U/S renal/ bladder: No hydronephrosis is seen. Incidental bilateral peripelvic cysts are noted which appear unchanged in comparison to a 2015 CT exam. The urinary bladder volume at the time of scanning is approximately 115 mL. The patient was unable to void at the time of examination. Cholelithiasis. ASSESSMENT/PLAN: Patient is an 84 year old female with history of hypertension, osteoarthritis, oral cancer (s/p jaw surgery) presents with lumbar back pain, admitted for a Lumbar L4 fracture #Acute compression fracture of L4 vertebral body -CT/MRI of Lumbar spine : acute L4 burst fracture with mild retropulsion and bilateral foraminal encroachment -Neurosurgery, Dr. Jarrett, is following, recs appreciated TLSO brace when out of bed and for comfort Will re-evaluate after ambulating with brace -PT eval pending -Pain management: Acetaminophen 650mg PO Q6H, Morphine 1 mg Q4H PRN -Fall precautions #New RBBB #Elevated Trop - RBBB new since prior EKG from 2015 - troponin 0.06, 0.08, 0.05. Flat trend, EKG no ST/T wave changes - Cardiology, Dr. Colten Leija, following, recs appreciated no ischemic change on EKG, unlikely ACS - Echo: EF 55%, Mild TR, Mod pulmonary HTN #Ua suggestive of UTI -UA : 2 + blood, Nitrite +, LE 3+, WBC 2330, Bacteria >9000, Epithel cells 4. Pending Ucx -Continue with Clindamycin IV 600mg Q8H (penicillin allergy) -U/S kidney/bladder : as noted above #Hx of HTN -Continue home Lisinopril 10mg QD, Lopressor 50mg BID FEN - No standing fluids - will continue to monitor electrolytes - Sodium controlled diet DVT ppx - Lovenox 40mg SQ Disposition - Will continue to monitor in Tele, pending PT eval Visit type - Emergency Visit Emergency Visit: Yes ED Registration Date: 06/28/20 Care time: The patient presented to the Emergency Department on the above date and was hospitalized for further evaluation of their emergent condition. - New Patient This patient is new to me today: No - Critical Care Critical Care patient: No - Discharge Referral Referred to [facility] Med P.C.: No - Medication Review Med list reviewed for High Risk Meds patients 65 and older: Yes ATTENDING PHYSICIAN STATEMENT I saw and evaluated the patient. I reviewed the resident's note and discussed the case with the resident. I agree with the resident's findings and plan as documented. SUBJECTIVE: OBJECTIVE: ASSESSMENT AND PLAN:
[2020-06-29] MEDS ORDERED: MORPHINE SULFATE 2 MG/ML VIAL IVPUSH ONE (16:35)
[2020-06-29] MEDS: ENOXAPARIN NA (PORCINE) 40 MG/0.4 ML DISP.SYRIN SQ SCH (17:14)
[2020-06-29] MEDS ORDERED: oxyCODONE HCL 5 MG TABLET PO PRN (17:22)
[2020-06-29] MEDS ORDERED: MORPHINE SULFATE 2 MG/ML VIAL IVPUSH PRN (17:24)
[2020-06-29] MEDS: METOPROLOL TARTRATE 50 MG TABLET (FP) PO SCH (21:10)
[2020-06-29] MEDS: LIDOCAINE PATCH REMOVAL MC SCH (21:52)
[2020-06-30] MEDS: CLINDAMYCIN 600MG PREMIX IVPB 600 MG/50 ML BAG IVPB SCH ×3 (01:29→18:11)
[2020-06-30] MEDS: ACETAMINOPHEN 325 MG TABLET (FP) PO PRN ×2 (06:38→23:46)
[2020-06-30 07:37] LABS: BASO % 0.6 % (0-2.0); EOS % 2.8 % (0-4.5); HEMATOCRIT 36.6 % (32.4-45.2); HEMOGLOBIN 12.5 GM/dL (10.7-15.3); LYMPH % 24.9 % (8-40); MCHC 34.2 g/dl (32.0-36.0); MEAN CELL VOLUME 96.3 fl (80-96); MEAN PLT VOLUME 9.2 fl (7.5-11.1); MONO % 14.2 % (3.8-10.2); NEUT % 57.5 % (42.8-82.8); PLATELET COUNT 147 K/MM3 (134-434); RDW 13.7 % (11.6-15.6); WHITE BLOOD COUNT 8.4 K/mm3 (4.0-10.0)
[2020-06-30] MEDS: oxyCODONE HCL 5 MG TABLET PO PRN ×3 (08:20→23:45)
[2020-06-30 08:21] LABS: ALBUMIN 2.7 g/dl (3.4-5.0); BLOOD UREA NITROGEN 28.5 mg/dL (7-18); CALCIUM 8.4 mg/dL (8.5-10.1); MAGNESIUM 2.3 mg/dL (1.8-2.4); POTASSIUM 4.5 mmol/L (3.5-5.1)
[2020-06-30 08:24] LABS: BILIRUBIN,TOTAL 0.5 mg/dL (0.2-1); CREATININE 0.9 mg/dL (0.55-1.3); PHOSPHOROUS 3.4 mg/dL (2.5-4.9); TOT PROT 6.2 g/dl (6.4-8.2)
[2020-06-30] MEDS: METOPROLOL TARTRATE 50 MG TABLET (FP) PO SCH ×2 (09:54→23:45)
[2020-06-30] MEDS: LISINOPRIL 10 MG TABLET PO SCH (09:54)
[2020-06-30] MEDS: ENOXAPARIN NA (PORCINE) 40 MG/0.4 ML DISP.SYRIN SQ SCH (09:54)
[2020-06-30] MEDS ORDERED: FLU VACCINE (FLULAVAL) PF 60 MCG/0.5 ML SYRINGE 2020-2021 IM ONE (11:00)
[2020-06-30] MEDS ORDERED: DOCUSATE SODIUM 100 MG CAPSULE (FP) PO PRN (11:55)
[2020-06-30] MEDS: MORPHINE SULFATE 2 MG/ML VIAL IVPUSH PRN (12:08)
--- NOTE | 2020-06-30 12:19 | PN ---
Progress Note (short form) - Note Progress Note: cc: back pain s: complains of back pain. no chest pain, palps dizziness, dyspnea never smoker Current Medications Generic Name Dose Route Start Last Admin Trade Name Freq PRN Reason Stop Dose Admin Acetaminophen 650 mg 06/28/20 16:01 06/30/20 06:38 Tylenol - PO 650 mg Q6H PRN Administration PAIN LEVEL 1-5 Docusate Sodium 100 mg 06/30/20 11:55 Colace - PO BID PRN CONSTIPATION Enoxaparin Sodium 40 mg 06/29/20 16:45 06/30/20 09:54 Lovenox - SQ 40 mg DAILY TOMAS Administration Clindamycin Phosphate 600 mg in 50 mls @ 100 mls/hr 06/28/20 20:00 06/30/20 09:53 Cleocin 600 Mg Premix Ivpb - IVPB 100 mls/hr Q8H-IV TOMAS Administration Protocol Lisinopril 10 mg 06/29/20 10:00 06/30/20 09:54 Prinivil PO 10 mg DAILY TOMAS Administration Metoprolol Tartrate 50 mg 06/29/20 22:00 06/30/20 09:54 Lopressor - PO 50 mg BID TOMAS Administration Miscellaneous 1 each 06/28/20 22:00 06/29/20 21:52 Lidoderm Patch Removal MC 1 each DAILY@2200 TOMAS Administration Morphine Sulfate 1 mg 06/30/20 08:44 06/30/20 12:08 Morphine Sulfate IVPUSH 1 mg Q4H PRN Administration PAIN LEVEL 6-10 Oxycodone HCl 5 mg 06/30/20 08:15 06/30/20 08:20 Roxicodone - PO 5 mg Q6H PRN Administration PAIN LEVEL 1-5 Polyethylene Glycol 17 gm 06/30/20 12:00 Miralax (For Daily Use) - PO DAILY TOMAS Vital Signs Period Temp Pulse Resp BP Sys/Penny Pulse Ox Last 24 Hr 97.7 F-98.5 F 76-95 18-20 112-127/55-80 90-97 Constitutional: Yes: Well Nourished, No Distress, Calm Eyes: Yes: Conjunctiva Clear, EOM Intact HENT: Yes: Atraumatic, Normocephalic Neck: Yes: Supple, Trachea Midline Respiratory: Yes: Regular, CTA Bilaterally Gastrointestinal: Yes: Normal Bowel Sounds, Soft Cardiovascular: Yes: Regular Rate and Rhythm JVD: No Heart Sounds: Yes: S1, S2 Musculoskeletal: Yes: Back Pain Extremities: No: Cold Edema: No Integumentary: No: Jaundice Neurological: Yes: Alert, Oriented Psychiatric: No: Agitated Assessment/Plan EKG: sinus, RBBB, no ischemic changes (RBBB new since prior EKG from 2014) tele: sinus echo 06/2020 nl LV function, abnormal diastolic compliance, PASP 52 mmHg mod pulm HTN, mild AR, nl RV 84F h/o HTN, OA, oral cancer s/p jaw surgery p/w back pain with new RBBB on EKG abnormal EKG, RBBB, pulm HTN - echo shows nl LV function with mod pulm HTN - consider pulm eval, RBBB and pulm HTN may be 2/2 underlying lung disease, patient denies history elevated trop - indeterminate range, flat trend - no ischemic change on EKG, unlikely ACS - nl LV function on echo back pain, lumbar L4 fracture - neurosurgery consulted UTI - manage per primary HTN - cont home meds
--- NOTE | 2020-06-30 12:50 | PN ---
Teaching Attending Note Name of Resident: Becca Marie ATTENDING PHYSICIAN STATEMENT I saw and evaluated the patient. I reviewed the resident's note and discussed the case with the resident. I agree with the resident's findings and plan as documented. SUBJECTIVE: Patient in pain OBJECTIVE: Vital Signs Period Temp Pulse Resp BP Sys/Penny Pulse Ox Last 24 Hr 97.7 F-98.5 F 76-95 18-20 112-127/55-80 90-97 Physical exam as per resident note ASSESSMENT AND PLAN: 84 y/o F with Hx of HTN, OA, Oral CA who presents with lumbar back pain Lumbar Pain in setting of L4 compression fracture Patient did not tolerate much ambulation with TLSO brace today, will defer to Neuro Sx if patient would benefit from surgical intervention. Continue Pain control with oxycodone for sever pain with morphine for break through pain HTN Cont Lisinopril, Metoprolol UTI Cont Clindamycin EKG with RBBB Echo reviewed ACS ruled out PPx SCD, Lovenox
[2020-06-30] MEDS: POLYETHYLENE GLYCOL 3350 119 GM BTL PO SCH (12:56)
--- NOTE | 2020-06-30 14:36 | PN ---
Physical Exam: SUBJECTIVE: Patient seen and examined at bedside. Reports severe pain overnight. No new complaints, denies any fevers chills. reports LBM was 3 days ago. OBJECTIVE: Vital Signs Period Temp Pulse Resp BP Sys/Penny Pulse Ox Last 24 Hr 97.7 F-98.5 F 76-95 17-20 112-127/58-80 95-97 GENERAL: The patient is awake, alert, and fully oriented, in no acute distress. HEAD: Normal with no signs of trauma. EYES: PERRL, extraocular movements intact, sclera anicteric, conjunctiva clear. No ptosis. ENT: Ears normal, nares patent, oropharynx clear without exudates, moist mucous membranes. NECK: Trachea midline, full range of motion, supple. LUNGS: Breath sounds equal, clear to auscultation bilaterally, no wheezes, no crackles, no accessory muscle use. HEART: Regular rate and rhythm, S1, S2 without murmur, rub or gallop. ABDOMEN: Soft, nontender, nondistended, normoactive bowel sounds, no guarding, n o rebound, no hepatosplenomegaly, no masses. EXTREMITIES: 2+ pulses, warm, well-perfused, no edema. NEUROLOGICAL: Cranial nerves II through XII grossly intact. Normal speech, gait not observed. Intact Motor and sensory functions b/l LEs PSYCH: Normal mood, normal affect. SKIN: Warm, dry, normal turgor, no rashes or lesions noted Laboratory Results - last 24 hr 06/30/20 06/30/20 06:52 06:52 WBC 8.4 RBC 3.80 Hgb 12.5 Hct 36.6 MCV 96.3 H MCH 33.0 MCHC 34.2 RDW 13.7 Plt Count 147 MPV 9.2 Absolute Neuts (auto) 4.8 Neutrophils % 57.5 D Lymphocytes % 24.9 D Monocytes % 14.2 H Eosinophils % 2.8 D Basophils % 0.6 Nucleated RBC % 0 Sodium 138 Potassium 4.5 Chloride 105 Carbon Dioxide 27 Anion Gap 7 L BUN 28.5 H Creatinine 0.9 Est GFR (CKD-EPI)AfAm 67.10 Est GFR (CKD-EPI)NonAf 57.90 Random Glucose 95 Calcium 8.4 L Phosphorus 3.4 Magnesium 2.3 Total Bilirubin 0.5 AST 43 H ALT 31 Alkaline Phosphatase 72 Total Protein 6.2 L Albumin 2.7 L Active Medications Generic Name Dose Route Start Last Admin Trade Name Freq PRN Reason Stop Dose Admin Acetaminophen 650 mg 06/28/20 16:01 06/30/20 06:38 Tylenol - PO 650 mg Q6H PRN Administration PAIN LEVEL 1-5 Docusate Sodium 100 mg 06/30/20 11:55 Colace - PO BID PRN CONSTIPATION Enoxaparin Sodium 40 mg 06/29/20 16:45 06/30/20 09:54 Lovenox - SQ 40 mg DAILY TOMAS Administration Clindamycin Phosphate 600 mg in 50 mls @ 100 mls/hr 06/28/20 20:00 06/30/20 09:53 Cleocin 600 Mg Premix Ivpb - IVPB 100 mls/hr Q8H-IV TOMAS Administration Protocol Lisinopril 10 mg 06/29/20 10:00 06/30/20 09:54 Prinivil PO 10 mg DAILY TOMAS Administration Metoprolol Tartrate 50 mg 06/29/20 22:00 06/30/20 09:54 Lopressor - PO 50 mg BID TOMAS Administration Miscellaneous 1 each 06/28/20 22:00 06/29/20 21:52 Lidoderm Patch Removal MC 1 each DAILY@2200 TOMAS Administration Morphine Sulfate 1 mg 06/30/20 08:44 06/30/20 12:08 Morphine Sulfate IVPUSH 1 mg Q4H PRN Administration PAIN LEVEL 6-10 Oxycodone HCl 5 mg 06/30/20 08:15 06/30/20 08:20 Roxicodone - PO 5 mg Q6H PRN Administration PAIN LEVEL 1-5 Polyethylene Glycol 17 gm 06/30/20 12:00 06/30/20 12:56 Miralax (For Daily Use) - PO 17 gm DAILY TOMAS Administration Imaging: Lumbar spine MRI: Acute compression fracture of L4 vertebral body with retropulsion of the posterior aspect of the of the vertebrae severely compromising the sac displacing it posteriorly with mass effect on the right and left L5 nerve roots in the recesses at best delineated on axial T1 image #11 and 12. No evidence otherwise of midline or foraminal herniation. The visualized foramina are symmetric and unremarkable. Cholelithiasis with no evidence of intrahepatic biliary ducts, common hepatic or common bile duct dilatation. Lumbar spine CT: There is moderate compression/anterior wedging of L4 superior endplate consistent with an acute fracture with mild retropulsion of its posterior/superior margin resulting in moderate canal stenosis and likely impinging both L4 nerve roots, left more than right. Diverticulosis coli in included portion of the colon without evidence of acute diverticulitis. Multiple gallstones. Bilateral renal parapelvic cysts and questionable mild renal hydronephrosis. Cystic density along posterior margin of the right kidney measuring 3.8 cm likely representing an exophytic right renal cyst U/S renal/ bladder: No hydronephrosis is seen. Incidental bilateral peripelvic cysts are noted which appear unchanged in comparison to a 2015 CT exam. The urinary bladder volume at the time of scanning is approximately 115 mL. The patient was unable to void at the time of examination. Cholelithiasis. ASSESSMENT/PLAN: Patient is an 84 year old female with history of hypertension, osteoarthritis, oral cancer (s/p jaw surgery) presents with lumbar back pain, admitted for a Lumbar L4 fracture #Acute compression fracture of L4 vertebral body -CT/MRI of Lumbar spine : acute L4 burst fracture with mild retropulsion and bilateral foraminal encroachment -Neurosurgery, Dr. Jarrett, is following, recs appreciated TLSO brace when out of bed and for comfort Will re-evaluate after ambulating with brace - Patient had PT this morning with TLSO brace, was not able to ambulate much due to severe pain. Pending Neurosurgery re-eval -Pain management:Oxycodone 5 mg PO Q6H for severe pain and , Morphine 1 mg Q4H PRN for breakthrough pain -Fall precautions #New RBBB #Elevated Trop - RBBB new since prior EKG from 2015 - troponin 0.06, 0.08, 0.05. Flat trend, EKG no ST/T wave changes - Cardiology, Dr. Colten Leija, following, recs appreciated no ischemic change on EKG, unlikely ACS - Echo: EF 55%, Mild TR, Mod pulmonary HTN #Ua suggestive of UTI -UA : 2 + blood, Nitrite +, LE 3+, WBC 2330, Bacteria >9000, Epithel cells 4. Urine culture: E.coli -Continue with Clindamycin IV 600mg Q8H (penicillin allergy) D#2 -U/S kidney/bladder : No hydronephrosis. Incidental bilateral peripelvic cysts #Hx of HTN -Continue home Lisinopril 10mg QD, Lopressor 50mg BID FEN - No standing fluids - will continue to monitor electrolytes - Sodium controlled diet DVT ppx - Lovenox 40mg SQ Disposition - Will continue to monitor in Tele Visit type - Emergency Visit Emergency Visit: Yes ED Registration Date: 06/28/20 Care time: The patient presented to the Emergency Department on the above date and was hospitalized for further evaluation of their emergent condition. - New Patient This patient is new to me today: No - Critical Care Critical Care patient: No - Discharge Referral Referred to [facility] Med P.C.: No - Medication Review Med list reviewed for High Risk Meds patients 65 and older: Yes ATTENDING PHYSICIAN STATEMENT I saw and evaluated the patient. I reviewed the resident's note and discussed the case with the resident. I agree with the resident's findings and plan as documented. SUBJECTIVE: OBJECTIVE: ASSESSMENT AND PLAN:
[2020-06-30] MEDS: LIDOCAINE PATCH REMOVAL MC SCH (23:37)
[2020-07-01] MEDS: CLINDAMYCIN 600MG PREMIX IVPB 600 MG/50 ML BAG IVPB SCH ×2 (03:05→10:15)
[2020-07-01 06:31] LABS: BASO % 0.8 % (0-2.0); EOS % 2.7 % (0-4.5); HEMATOCRIT 35.8 % (32.4-45.2); HEMOGLOBIN 11.9 GM/dL (10.7-15.3); LYMPH % 16.9 % (8-40); MCHC 33.2 g/dl (32.0-36.0); MEAN CELL VOLUME 96.4 fl (80-96); MEAN PLT VOLUME 8.9 fl (7.5-11.1); MONO % 14.6 % (3.8-10.2); PLATELET COUNT 152 K/MM3 (134-434); RBC 3.71 M/mm3 (3.60-5.2); RDW 13.5 % (11.6-15.6); WHITE BLOOD COUNT 5.8 K/mm3 (4.0-10.0)
[2020-07-01] MEDS: ACETAMINOPHEN 325 MG TABLET (FP) PO PRN ×2 (06:40→12:59)
[2020-07-01] MEDS: oxyCODONE HCL 5 MG TABLET PO PRN ×2 (06:40→12:59)
[2020-07-01 07:06] LABS: ALBUMIN 2.6 g/dl (3.4-5.0); BILIRUBIN,TOTAL 0.4 mg/dL (0.2-1); BLOOD UREA NITROGEN 36.8 mg/dL (7-18); CREATININE 0.9 mg/dL (0.55-1.3); MAGNESIUM 2.3 mg/dL (1.8-2.4); PHOSPHOROUS 3.8 mg/dL (2.5-4.9); POTASSIUM 4.4 mmol/L (3.5-5.1)
[2020-07-01] MEDS: POLYETHYLENE GLYCOL 3350 119 GM BTL PO SCH (09:14)
[2020-07-01] MEDS: MORPHINE SULFATE 2 MG/ML VIAL IVPUSH PRN (09:22)
[2020-07-01 09:29] VITALS: PULSE 84; TEMP 98
[2020-07-01] MEDS: ENOXAPARIN NA (PORCINE) 40 MG/0.4 ML DISP.SYRIN SQ SCH (10:15)
[2020-07-01] MEDS: METOPROLOL TARTRATE 50 MG TABLET (FP) PO SCH (10:15)
[2020-07-01] MEDS: LISINOPRIL 10 MG TABLET PO SCH (10:15)
--- NOTE | 2020-07-01 11:12 | PN ---
Progress Note (short form) - Note Progress Note: cc: back pain s: complains of moderate back pain. no chest pain, palps dizziness, dyspnea never smoker Current Medications Generic Name Dose Route Start Last Admin Trade Name Freq PRN Reason Stop Dose Admin Acetaminophen 650 mg 06/28/20 16:01 07/01/20 06:40 Tylenol - PO 650 mg Q6H PRN Administration PAIN LEVEL 1-5 Docusate Sodium 100 mg 06/30/20 11:55 Colace - PO BID PRN CONSTIPATION Enoxaparin Sodium 40 mg 06/29/20 16:45 07/01/20 10:15 Lovenox - SQ 40 mg DAILY TOMAS Administration Clindamycin Phosphate 600 mg in 50 mls @ 100 mls/hr 06/28/20 20:00 07/01/20 10:15 Cleocin 600 Mg Premix Ivpb - IVPB 100 mls/hr Q8H-IV TOMAS Administration Protocol Lisinopril 10 mg 06/29/20 10:00 07/01/20 10:15 Prinivil PO 10 mg DAILY TOMAS Administration Metoprolol Tartrate 50 mg 06/29/20 22:00 07/01/20 10:15 Lopressor - PO 50 mg BID TOMAS Administration Miscellaneous 1 each 06/28/20 22:00 06/30/20 23:37 Lidoderm Patch Removal MC 1 each DAILY@2200 TOMAS Administration Morphine Sulfate 1 mg 06/30/20 08:44 07/01/20 09:22 Morphine Sulfate IVPUSH 1 mg Q4H PRN Administration PAIN LEVEL 6-10 Oxycodone HCl 5 mg 06/30/20 08:15 07/01/20 06:40 Roxicodone - PO 5 mg Q6H PRN Administration PAIN LEVEL 1-5 Polyethylene Glycol 17 gm 06/30/20 12:00 07/01/20 09:14 Miralax (For Daily Use) - PO Not Given DAILY TOMAS Vital Signs Period Temp Pulse Resp BP Sys/Penny Pulse Ox Last 24 Hr 97.5 F-98 F 71-92 17-18 105-143/55-69 94-97 Constitutional: Yes: Well Nourished, No Distress, Calm Eyes: Yes: Conjunctiva Clear, EOM Intact HENT: Yes: Atraumatic, Normocephalic Neck: Yes: Supple, Trachea Midline Respiratory: Yes: Regular, CTA Bilaterally Gastrointestinal: Yes: Normal Bowel Sounds, Soft Cardiovascular: Yes: Regular Rate and Rhythm JVD: No Heart Sounds: Yes: S1, S2 Musculoskeletal: Yes: Back Pain Extremities: No: Cold Edema: No Integumentary: No: Jaundice Neurological: Yes: Alert, Oriented Psychiatric: No: Agitated CBC, BMP 07/01/20 06:05 07/01/20 06:05 Assessment/Plan EKG: sinus, RBBB, no ischemic changes (RBBB new since prior EKG from 2014) tele: sinus echo 06/2020 nl LV function, abnormal diastolic compliance, PASP 52 mmHg mod pulm HTN, mild AR, nl RV 84F h/o HTN, OA, oral cancer s/p jaw surgery p/w back pain with new RBBB on EKG abnormal EKG, RBBB, pulm HTN - echo shows nl LV function with mod pulm HTN - consider pulm eval, RBBB and pulm HTN may be 2/2 underlying lung disease, patient denies history elevated trop - indeterminate range, flat trend - no ischemic change on EKG, unlikely ACS - nl LV function on echo back pain, lumbar L4 fracture - neurosurgery consulted UTI - manage per primary HTN - cont home meds dc tele
--- NOTE | 2020-07-01 12:34 | PN ---
Teaching Attending Note Name of Resident: Becca Marie ATTENDING PHYSICIAN STATEMENT I saw and evaluated the patient. I reviewed the resident's note and discussed the case with the resident. I agree with the resident's findings and plan as documented. SUBJECTIVE: Patient was able to participate with physical therapy today. Still with pain OBJECTIVE: Vital Signs Period Temp Pulse Resp BP Sys/Penny Pulse Ox Last 24 Hr 97.5 F-98 F 71-92 17-18 105-143/55-69 94-97 Physical Exam as per resident note Labs reviewed ASSESSMENT AND PLAN: 84 y/o F with Hx of HTN, OA, Oral CA who presents with lumbar back pain Lumbar Pain in setting of L4 compression fracture Await NeuroSx recs re: Surgical intervention If no Surgical intervention planned, will look to discharge to rehab today Continue Pain control with oxycodone HTN Cont Lisinopril, Metoprolol UTI Cont Clindamycin--day 3/5 EKG with RBBB Echo reviewed ACS ruled out PPx SCD, Lovenox
--- NOTE | 2020-07-01 12:55 | DS ---
Physical Exam: SUBJECTIVE: Patient seen and examined at bedside, reports improvement of her pain with medications. Tolerated PT this morning able to take 10 steps with assistance. OBJECTIVE: Vital Signs Period Temp Pulse Resp BP Sys/Penny Pulse Ox Last 24 Hr 97.5 F-98 F 71-92 17-18 105-143/55-69 94-97 PHYSICAL EXAM GENERAL: The patient is awake, alert, and fully oriented, in no acute distress. HEAD: Normal with no signs of trauma. EYES: PERRL, extraocular movements intact, sclera anicteric, conjunctiva clear. No ptosis. ENT: Ears normal, nares patent, oropharynx clear without exudates, moist mucous membranes. NECK: Trachea midline, full range of motion, supple. LUNGS: Breath sounds equal, clear to auscultation bilaterally, no wheezes, no crackles, no accessory muscle use. HEART: Regular rate and rhythm, S1, S2 without murmur, rub or gallop. ABDOMEN: Soft, nontender, nondistended, normoactive bowel sounds, no guarding EXTREMITIES: 2+ pulses, warm, well-perfused, no edema. NEUROLOGICAL: Cranial nerves II through XII grossly intact. Normal speech, gait not observed. Intact Motor and sensory functions b/l LEs PSYCH: Normal mood, normal affect. SKIN: Warm, dry, normal turgor, no rashes or lesions noted LABS Laboratory Results - last 24 hr 07/01/20 07/01/20 06:05 06:05 WBC 5.8 RBC 3.71 Hgb 11.9 Hct 35.8 MCV 96.4 H MCH 32.0 MCHC 33.2 RDW 13.5 Plt Count 152 MPV 8.9 Absolute Neuts (auto) 3.8 Neutrophils % 65.0 Lymphocytes % 16.9 D Monocytes % 14.6 H Eosinophils % 2.7 Basophils % 0.8 Nucleated RBC % 0 Sodium 142 Potassium 4.4 Chloride 108 H Carbon Dioxide 27 Anion Gap 7 L BUN 36.8 H Creatinine 0.9 Est GFR (CKD-EPI)AfAm 67.10 Est GFR (CKD-EPI)NonAf 57.90 Random Glucose 96 Calcium 8.0 L Phosphorus 3.8 Magnesium 2.3 Total Bilirubin 0.4 AST 32 ALT 31 Alkaline Phosphatase 68 Total Protein 6.0 L Albumin 2.6 L HOSPITAL COURSE: Date of Admission:06/28/20 Patient is an 84 year old female with history of hypertension, osteoarthritis, oral cancer (s/p jaw surgery) presents with lumbar back pain, admitted for an Ac knik compression fracture of L4 vertebral body. CT/MRI of Lumbar spine : acute L4 burst fracture with mild retropulsion and bilateral foraminal encroachment. Neurosurgery, Dr. Jarrett consulted. Recommended TLSO brace when out of bed and for comfort. Discussed with Dr. Stanley, No acute surgical interventions are indicated at this time, will benefit from acute rehab. RBBB new since prior EKG from 2015. troponin 0.06, 0.08, 0.05. Flat trend, EKG no ST/T wave changes. Cardiology, Dr. Colten Leija, Consulted: no ischemic change on EKG, unlikely ACS. Echo: EF 55%, Mild TR, Mod pulmonary HTN. UA : 2 + blood, Nitrite +, LE 3+, WBC 2330, Bacteria >9000, Epithel cells 4. Urine culture: E.coli. Treated with 3/5 days of Clindamycin IV 600mg Q8H inpatient and prescribed 2 days for 5 day completing at rehab. U/S kidney/bladder : No hydronephrosis. Patient is clinically stable for discharge and discharged her to a rehab facility for further care with the following instruction, referrals and prescriptions Date of Discharge: 07/01/20 Minutes to complete discharge: 36 Discharge Summary Problems reviewed: Yes Reason For Visit: FRACTURE OF VERTEBRA; RIGHT BUNDLE BRANCH BLOCK Current Active Problems Right bundle branch block (Acute) Condition: Guarded - Instructions Diet, Activity, Other Instructions: YOUR VISIT You came to the hospital because you were experiencing lower back pain. You were admitted to the hospital for care of this symptom. Imaging of your back revealed that you have a fracture (partial break in bone) in your lower back. You were seen and evaluated by neurosurgery. You do not need any surgical intervention at this time and will likely benefit from acute rehabilitation. You are now stable and may continue your care at an acute rehabilitation facility for further care. EKG on this visit showed some new changes of electrical activity of your heart called a right bundle branch block. Further imaging of your heart showed that you may have an underlying chronic lung condition that may be contributing to the changes noticed on the EKG. Please make an appointment to see a pulmonary doctor when you have completed your rehabilitation. We have provided you with a referral. Urine analysis showed that you have a infection in your urinary tract. You were treated with 3 days of IV antibiotics and you will need 2 more days at your rehab center, making a total of 5 days. MEDICATIONS Please continue to take your home medications as prescribed. You have *NEW* medications: Please take Clindamycin 300 mg by mouth every 6 hours for a total of 2 days. Please take Colace 100mg twice a day and Miralax 17 gm daily for constipation. Please take Tylenol 620mg every 4 hours or as needed for your back pain. If your have worse pain, you may take oxycodone 5 mg by mouth every 6 hours only if you feel you need it. ADDITIONAL CARE Please make an appointment to see your primary care provider, Dr. Conley, 1 week from today or after your rehab to discuss the hospital course and to repeat blood work. Please make an appointment to see a your pulmonary, Dr. Gudino, within 1-2 weeks or after your rehab to further evaluate your lungs Please make an appointment to see your smasher Dr. Abel, within 1-2 weeks or after your rehab to further evaluate your heart and to repeat EKG. ADDITIONAL INFORMATION Please call 911 or come directly to the emergency department if you experience recurrence of the symptoms that brought you to the hospital, unusual headache, vision change, shortness of breath, chest pain, numbness, tingling, loss of alertness/awareness, loss of function, unusual bleeding or any alarming symptoms. Referrals: Liss Abel MD [Staff Physician] - 2 Weeks () Herberth Gudino MD [Staff Physician] - 2 Weeks (RBBB, Echo: EF 55%, Mild TR, Mod pulmonary HTN ) Adarsh Conley MD [Primary Care Provider] - 1 Week (hospital course, repeat l abs) Disposition: RETIREMENT FACILITY - Home Medications Comprehensive Discharge Medication List: Ambulatory Orders Lisinopril [Zestril] 10 mg PO DAILY 11/01/14 Metoprolol Tartrate [Lopressor -] 50 mg PO BID 06/29/20 Acetaminophen [Tylenol .Regular Strength -] 650 mg PO Q6H PRN tablet 07/01/20 Clindamycin [Cleocin -] 300 mg PO Q6HPO 2 Days #8 capsule 10/15/20 Docusate Sodium [Colace -] 100 mg PO BID PRN capsule 07/01/20 Polyethylene Glycol 3350 [Miralax 119 gm Btl -] 17 gm PO DAILY bottle 07/01/20 oxyCODONE HCL [Roxicodone -] 5 mg PO Q6H PRN tablet 07/01/20 This patient is new to me today: No Emergency Visit: Yes ED Registration Date: 06/28/20 Care time: The patient presented to the Emergency Department on the above date and was hospitalized for further evaluation of their emergent condition. Critical Care patient: No - Discharge Referral Referred to [facility] Med P.C.: No ATTENDING PHYSICIAN STATEMENT I saw and evaluated the patient. I reviewed the resident's note and discussed the case with the resident. I agree with the resident's findings and plan as documented. SUBJECTIVE: OBJECTIVE: ASSESSMENT AND PLAN:
[2020-07-01 13:10] VITALS: BP 124/64
== END 2020-07-01 15:06 | DRG 543 ==
LOC: JER 10:14 → JERBED 15:51 → J4W 17:42
PROVIDERS: ATTEND Internal Medicine
DX: M48.56XA Collapsed vertebra, not elsewhere classified, lumbar region, initial encounter for fracture (principal); N39.0 Urinary tract infection, site not specified; N17.9 Acute kidney failure, unspecified; M48.061 Spinal stenosis, lumbar region without neurogenic claudication; I27.20 Pulmonary hypertension, unspecified; I10 Essential (primary) hypertension; B96.20 Unspecified Escherichia coli [E. coli] as the cause of diseases classified elsewhere; F03.90 Unspecified dementia, unspecified severity, without behavioral disturbance, psychotic disturbance, mood disturbance, and anxiety; R94.31 Abnormal electrocardiogram [ECG] [EKG]; I45.10 Unspecified right bundle-branch block; Z88.0 Allergy status to penicillin; Z85.819 Personal history of malignant neoplasm of unspecified site of lip, oral cavity, and pharynx
CPT/HCPCS: 36415; 72131-TC; 72148-TC; 76775-TC; 76856-TC; 80053; 81003; 82550; 83735; 84100; 84484; 85025; 85027; 87086; 87186; 93005; 93010; 93306-TC; 97116-GP; 97162-GP; 99285-25; C9803; Q2036; U0003